=== PATIENT | male | born 1960 | race African-American/Black ===

== ENCOUNTER 2021-07-27 18:42 | Emergency (ER) | payer OTHER ==
[2021-07-27 19:35] VITALS: BP 132/95; PULSE 91; BMI 27.6
[2021-07-27 20:11] LABS: BASO % 0.6 % (0-2.0); EOS % 1.3 % (0-4.5); HEMOGLOBIN 11.8 GM/dL (11.7-16.9); LYMPH % 16.2 % (8-40); MCH 27.9 pg (25.7-33.7); MCHC 33.7 g/dl (32.0-35.9); MEAN PLT VOLUME 9.3 fl (7.5-11.1); MONO % 6.4 % (3.8-10.2); NEUT % 75.5 % (42.8-82.8); PLATELET COUNT 337 10^3/uL (134-434); RBC 4.22 M/mm3 (4.00-5.60); RDW 15.1 % (11.9-15.9); WHITE BLOOD COUNT 10.7 K/mm3 (4.0-10.0)
[2021-07-27 20:21] LABS: INR 1.22 (0.83-1.09); PROTHROMBIN TIME (PATIENT) 13.7 SEC (9.7-13.0)
[2021-07-27 20:24] LABS: ACTIVATED PTT 32.3 SECONDS (25.2-36.5)
[2021-07-27 21:03] LABS: ALBUMIN 3.2 g/dl (3.4-5.0); BILIRUBIN,TOTAL 0.5 mg/dL (0.2-1); BLOOD UREA NITROGEN 46.9 mg/dL (7-18); CALCIUM 9.6 mg/dL (8.5-10.1); CREATININE 0.9 mg/dL (0.55-1.3); TOT PROT 7.1 g/dl (6.4-8.2)
== END 2021-07-27 23:03 ==
LOC: JER 18:42
DX: R04.0 Epistaxis (principal)
CPT/HCPCS: 36415; 80053; 85025; 85610; 85730; 86850; 86900; 86901; 93005; 93010; 99283-25

== ENCOUNTER 2021-07-30 11:44 | Emergency (ER) | payer OTHER ==
[2021-07-30 12:07] VITALS: BMI 25.7
[2021-07-30] MEDS ORDERED: TRANEXAMIC ACID 1000 MG/10 ML VIAL IVPUSH ONE (18:19)
[2021-07-30] MEDS ORDERED: TRANEXAMIC ACID 1000 MG/10 ML VIAL ONE (18:25)
[2021-07-30 21:34] VITALS: BP 152/88; PULSE 86; TEMP 98.1
== END 2021-07-30 22:44 | disposition home or self-care (01) ==
LOC: JER 11:44
PROC: 3E033GC Introduction of Other Therapeutic Substance into Peripheral Vein, Percutaneous Approach (ICD-10-PCS; principal; 2021-07-30)
DX: R04.0 Epistaxis (principal)
CPT/HCPCS: 99284-25

== ENCOUNTER 2022-06-23 01:01 | Emergency (ER) | payer OTHER ==
[2022-06-23] MEDS ORDERED: IOHEXOL 180 MG/1 ML ML IJ ONE (01:23)
[2022-06-23 02:03] VITALS: BP 158/93; PULSE 68; RESP 18; TEMP 98; BMI 24.4
== END 2022-06-23 02:46 ==
LOC: JER 01:01
DX: K94.23 Gastrostomy malfunction (principal)
CPT/HCPCS: 74018-TC-FY; 99283-25

== ENCOUNTER 2022-10-11 04:30 | Observation (INO) | payer OTHER ==
[2022-10-11 05:09] VITALS: BMI 23.3
[2022-10-11 05:27] LABS: BASO % 0.9 % (0-2.0); EOS % 0.4 % (0-4.5); HEMATOCRIT 39.5 % (35.4-49); HEMOGLOBIN 13.3 GM/dL (11.7-16.9); LYMPH % 24.8 % (8-40); MCH 28.2 pg (25.7-33.7); MCHC 33.7 g/dl (32.0-35.9); MEAN CELL VOLUME 83.7 fl (80-96); MEAN PLT VOLUME 10.7 fl (7.5-11.1); MONO % 9.8 % (3.8-10.2); NEUT % 64.1 % (42.8-82.8); PLATELET COUNT 223 10^3/uL (134-434); RBC 4.72 M/mm3 (4.00-5.60); RDW 14.9 % (11.9-15.9); WHITE BLOOD COUNT 8.3 K/mm3 (4.0-10.0)
[2022-10-11 05:44] LABS: CALCIUM 9.5 mg/dL (8.5-10.1)
[2022-10-11 05:45] LABS: ALBUMIN 3.6 g/dl (3.4-5.0); BLOOD UREA NITROGEN 22.9 mg/dL (7-18)
[2022-10-11 05:48] LABS: CREATININE 0.7 mg/dL (0.55-1.3)
[2022-10-11 05:50] LABS: BILIRUBIN,TOTAL 0.8 mg/dL (0.2-1); TOT PROT 7.4 g/dl (6.4-8.2)
[2022-10-11] MEDS ORDERED: ACETAMINOPHEN 1000 MG/100 ML BAG IVPB PRN (06:53)
[2022-10-11] MEDS: DEXTROSE 5%-NORMAL SALINE 1,000 ML IV SCH ×2 (07:56→16:02)
[2022-10-11] MEDS: INSULIN SLIDING SCALE (NOVOLOG) 1 VIAL SQ SCH ×4 (08:10→21:49)
[2022-10-11 08:47] LABS: INR 1.19 (0.83-1.09); PROTHROMBIN TIME (PATIENT) 13.8 SEC (9.7-13.0)
[2022-10-12] MEDS: INSULIN SLIDING SCALE (NOVOLOG) 1 VIAL SQ SCH ×4 (08:09→22:05)
[2022-10-12 11:05] LABS: BASO % 2.1 % (0-2.0); EOS % 1.2 % (0-4.5); LYMPH % 22.8 % (8-40); MCH 27.6 pg (25.7-33.7); MCHC 32.5 g/dl (32.0-35.9); MEAN CELL VOLUME 84.8 fl (80-96); MEAN PLT VOLUME 10.9 fl (7.5-11.1); MONO % 16.8 % (3.8-10.2); NEUT % 57.1 % (42.8-82.8); PLATELET COUNT 206 10^3/uL (134-434); RBC 4.36 M/mm3 (4.00-5.60); RDW 15.1 % (11.9-15.9)
[2022-10-12 11:41] LABS: CALCIUM 9.3 mg/dL (8.5-10.1)
[2022-10-12 11:42] LABS: BLOOD UREA NITROGEN 19.8 mg/dL (7-18)
[2022-10-12 11:45] LABS: CREATININE 0.7 mg/dL (0.55-1.3)
[2022-10-12] MEDS: DEXTROSE 5%-NORMAL SALINE 1,000 ML IV SCH (12:38)
[2022-10-12 14:13] VITALS: RESP 18
[2022-10-13] MEDS: INSULIN SLIDING SCALE (NOVOLOG) 1 VIAL SQ SCH ×2 (06:17→13:39)
[2022-10-13 06:48] VITALS: BP 164/94; PULSE 67; TEMP 97.8
[2022-10-13] MEDS: DEXTROSE 5%-NORMAL SALINE 1,000 ML IV SCH (09:43)
== END 2022-10-13 14:18 ==
LOC: JER 04:30 → JERBED 06:39 → J5S 08:56
PROVIDERS: ADMIT Internal Medicine; ATTEND Family Medicine
PROC: 0DH67UZ Insertion of Feeding Device into Stomach, Via Natural or Artificial Opening (ICD-10-PCS; principal; 2022-10-11)
PROC: 3E033GC Introduction of Other Therapeutic Substance into Peripheral Vein, Percutaneous Approach (ICD-10-PCS; 2022-10-11)
DX: T85.528A Displacement of other gastrointestinal prosthetic devices, implants and grafts, initial encounter (principal); I25.10 Atherosclerotic heart disease of native coronary artery without angina pectoris; I11.9 Hypertensive heart disease without heart failure; R56.9 Unspecified convulsions; Z87.820 Personal history of traumatic brain injury; G91.9 Hydrocephalus, unspecified; F10.21 Alcohol dependence, in remission; E11.9 Type 2 diabetes mellitus without complications; Y82.8 Other medical devices associated with adverse incidents
CPT/HCPCS: 0241U-QW; 36415; 49440; 80048; 80053; 82962; 85025; 85610; 85730; 93005; 93010; 96365; 99285-25; C1769; C9803-CS; G0378; U0003; U0005

== ENCOUNTER 2022-12-23 06:51 | Emergency (ER) | payer OTHER ==
[2022-12-23 06:54] VITALS: RESP 20; BMI 24.2
[2022-12-23 09:36] VITALS: BP 156/98; PULSE 66; TEMP 97.5
== END 2022-12-23 10:19 | disposition home or self-care (01) ==
LOC: JER 06:51
PROC: 0DH67UZ Insertion of Feeding Device into Stomach, Via Natural or Artificial Opening (ICD-10-PCS; principal; 2022-12-23)
DX: K94.23 Gastrostomy malfunction (principal)
CPT/HCPCS: 74018-TC-FY; 99283-25

== ENCOUNTER 2024-02-28 12:30 | Emergency (ER) | payer OTHER ==
[2024-02-28 12:58] VITALS: TEMP 99.7; BMI 27.1
[2024-02-28] MEDS ORDERED: levETIRAcetam 500 MG/5 ML INJECTION VIAL IVPB ONE (12:59)
[2024-02-28] MEDS: levETIRAcetam 500 MG/5 ML INJECTION VIAL IVPB ONE (13:15)
[2024-02-28 13:29] LABS: BASO % 0.1 % (0-2.0); HEMATOCRIT 34.9 % (35.4-49); HEMOGLOBIN 11.1 GM/dL (11.7-16.9); LYMPH % 4.2 % (8-40); MCH 26.2 pg (25.7-33.7); MCHC 31.9 g/dl (32.0-35.9); MEAN CELL VOLUME 82.2 fl (80-96); MEAN PLT VOLUME 9.5 fl (7.5-11.1); MONO % 11.7 % (3.8-10.2); PLATELET COUNT 330 10^3/uL (134-434); RBC 4.24 M/mm3 (4.00-5.60); RDW 15.8 % (11.9-15.9)
[2024-02-28 13:43] LABS: POTASSIUM 3.5 mmol/L (3.5-5.1)
[2024-02-28 13:45] LABS: ALBUMIN 3.2 g/dl (3.4-5.0); BLOOD UREA NITROGEN 29.6 mg/dL (7-18); CALCIUM 9.3 mg/dL (8.5-10.1); MAGNESIUM 2.2 mg/dL (1.8-2.4)
[2024-02-28 13:50] LABS: BILIRUBIN,TOTAL 0.5 mg/dL (0.2-1); TOT PROT 7.2 g/dl (6.4-8.2)
[2024-02-28] MEDS ORDERED: LABETALOL HCL 5 MG/1 ML (100MG/20 ML VIAL) ONE ×2 (14:20→16:42)
[2024-02-28 14:23] LABS: CREATININE 0.8 mg/dL (0.55-1.3)
[2024-02-28] MEDS: LABETALOL HCL 5 MG/1 ML (100MG/20 ML VIAL) IVPUSH ONE ×2 (14:25→16:49)
[2024-02-28] MEDS: LORazepam 2 MG/ML SDV VIAL IVPUSH ONE ×2 (16:49→17:26)
[2024-02-28 16:57] LABS: EPI CELLS 13 /uL (0-25.1); HYALINE CASTS 0 /uL (0-3.1); PH,URINE 6.5 (5.0-8.0); URINE APPEARANCE CLEAR; URINE BACTERIA 26 /uL (0-1359); URINE BILIRUBIN NEGATIVE (NEGATIVE); URINE COLOR YELLOW; URINE GLUCOSE (UA) NEGATIVE (NEGATIVE); URINE KETONE NEGATIVE (NEGATIVE); URINE LEUK ESTERASE NEGATIVE (NEGATIVE); URINE NITRITE NEGATIVE (NEGATIVE); URINE PROTEIN 3+ (NEGATIVE); URINE RBC 17 /uL (0-23.9); URINE WBC 4 /uL (0-25.8)
[2024-02-28] MEDS ORDERED: ACETAMINOPHEN INJECTION 100 ML IVPB ONE (17:10)
[2024-02-28] MEDS: ACETAMINOPHEN 1000 MG/100 ML BAG IVPB ONE (17:17)
[2024-02-28] MEDS ORDERED: LORazepam 2 MG/ML SDV VIAL IVPUSH PRN (19:06)
[2024-02-28 22:00] VITALS: BP 152/92; PULSE 78; RESP 16
== END 2024-02-28 22:26 | disposition short-term general hospital (02) ==
LOC: JER 12:30
PROC: 3E033NZ Introduction of Analgesics, Hypnotics, Sedatives into Peripheral Vein, Percutaneous Approach (ICD-10-PCS; principal; 2024-02-28)
PROC: 3E033GC Introduction of Other Therapeutic Substance into Peripheral Vein, Percutaneous Approach (ICD-10-PCS; 2024-02-28)
PROC: 3E033GC Introduction of Other Therapeutic Substance into Peripheral Vein, Percutaneous Approach (ICD-10-PCS; 2024-02-28)
PROC: 3E033GC Introduction of Other Therapeutic Substance into Peripheral Vein, Percutaneous Approach (ICD-10-PCS; 2024-02-28)
PROC: 3E033GC Introduction of Other Therapeutic Substance into Peripheral Vein, Percutaneous Approach (ICD-10-PCS; 2024-02-28)
PROC: 3E033GC Introduction of Other Therapeutic Substance into Peripheral Vein, Percutaneous Approach (ICD-10-PCS; 2024-02-28)
DX: G40.901 Epilepsy, unspecified, not intractable, with status epilepticus (principal); G91.9 Hydrocephalus, unspecified; Z20.822 Contact with and (suspected) exposure to COVID-19
CPT/HCPCS: 0241U-QW; 36415; 70450-TC; 71045-TC-FY; 80053; 81003; 82550; 82553; 83735; 84146; 84484; 85025; 87086; 93005; 93010; 99285-25; J0131